=== PATIENT | male | born 1985 | race Caucasian/White ===

== ENCOUNTER 2018-08-20 13:36 | Emergency (ER) | payer SELFPAY ==
[~2018-08-20] VITALS: Ht 188 cm; Wt 124.7 kg
[2018-08-20 17:12] VITALS: BP 129/80
== END 2018-08-20 17:12 | disposition home or self-care (01) ==
LOC: ER 13:43
DX: L25.9 Unspecified contact dermatitis, unspecified cause (principal); F17.210 Nicotine dependence, cigarettes, uncomplicated
CPT/HCPCS: 93970